=== PATIENT | male | born 1960 | race Caucasian/White ===

== ENCOUNTER 2017-01-23 15:14 | Inpatient (IN) | payer OTHER ==
[~2017-01-23] VITALS: Ht 182.9 cm; Wt 126.4 kg
[2017-01-23 15:22] LABS: BASOPHIL COUNT 0.1 K/uL (0-0.1); EOSINOPHIL (%) 0.4 % (0-5); EOSINOPHIL COUNT 0.1 K/uL (0-0.3); HEMATOCRIT 40.7 % (38.0-50.0); IMMATURE GRANULOCYTE (%) 0.6 % (0.0-0.7); IMMATURE GRANULOCYTE COUNT 0.1 K/uL; INSTRUMENT ABS NEUTROPHIL CT 9.8 K/uL; LYMPHOCYTE COUNT 5.1 K/uL (1.0-2.8); MCH 31.3 PG (29.0-34.0); MCHC 33.9 G/DL (30.0-36.0); MCV 92.3 FL (86-99); MEAN PLAT.VOLUME 8.8 uM^3 (9.0-12.4); MONOCYTE (%) 5.1 % (3-12); MONOCYTE COUNT 0.8 K/uL (0-0.8); NEUTROPHIL (%) 61.5 % (45-76); NEUTROPHIL COUNT 9.8 K/uL (1.8-6.4); PLATELET COUNT 264 K/uL (156-360); RBC DIS.WIDTH-CV 12.6 % (11.8-14.6); RBC DIS.WIDTH-SD 42.5 % (39-53); RED BLOOD COUNT 4.41 M/uL (4.00-5.50); WHITE BLOOD COUNT 15.9 K/uL (4.1-10.2)
[2017-01-23 15:30] LABS: AMYLASE 40 IU/L (1-118); CHLORIDE 109 mEq/L (99-109); POTASSIUM 3.7 mEq/L (3.7-5.4); SODIUM 141 mEq/L (136-147)
[2017-01-23 15:32] LABS: GLUCOSE 159 mg/dL (70-99)
[2017-01-23 15:33] LABS: ANION GAP 13 MEQ/L (2-14)
[2017-01-23 15:35] LABS: SERUM ETHYL ALCOHOL 236 mg/dL
[2017-01-23 15:36] LABS: UREA NITROGEN (BUN) 14 mg/dL (9-23)
[2017-01-23 15:38] LABS: GFR ESTIMATE (CALCULATED) 56 mL/min/
[2017-01-23 15:39] LABS: LIPASE 21 U/L (1.0-51.0)
[2017-01-23 21:43] VITALS: BP 155/78
[2017-01-23 23:25] VITALS: BP 137/66
[2017-01-24] VITALS (7 sets, daily range): BP systolic 123–148; BP diastolic 57–78
[2017-01-24] MEDS ORDERED: ALLOPURINOL100 MG PO (01:47)
[2017-01-24 09:42] LABS: EOSINOPHIL (%) 0 % (0-5); HEMATOCRIT 34.7 % (38.0-50.0); IMMATURE GRANULOCYTE (%) 0.4 % (0.0-0.7); IMMATURE GRANULOCYTE COUNT 0.1 K/uL; INSTRUMENT ABS NEUTROPHIL CT 8.5 K/uL; MCH 31.7 PG (29.0-34.0); MCHC 34.3 G/DL (30.0-36.0); MCV 92.5 FL (86-99); MONOCYTE (%) 9.4 % (3-12); MONOCYTE COUNT 1.1 K/uL (0-0.8); NEUTROPHIL (%) 73.2 % (45-76); NEUTROPHIL COUNT 8.5 K/uL (1.8-6.4); RBC DIS.WIDTH-SD 43.7 % (39-53); RED BLOOD COUNT 3.75 M/uL (4.00-5.50); WHITE BLOOD COUNT 11.6 K/uL (4.1-10.2)
[2017-01-24 09:56] LABS: MEAN PLAT.VOLUME 8.8 uM^3 (9.0-12.4); PLAT.SUFFICIENCY ADEQUATE
[2017-01-24 09:58] LABS: ALKALINE PHOSPHATASE 68 IU/L (3-129); ANION GAP 11 MEQ/L (2-14); CHLORIDE 101 MEQ/L (99-109); MAGNESIUM 1.8 mg/dl (1.3-2.7); POTASSIUM 4.1 MEQ/L (3.7-5.4); SAMPLE HEMOLYSIS CHECK 0; SAMPLE ICTERIC CHECK 0; SAMPLE LIPEMIA CHECK 0; SODIUM 138 MEQ/L (136-147); TOTAL BILIRUBIN 1.1 MG/DL (0.0-1.0); UREA NITROGEN (BUN) 12 mg/dL (9-23)
[2017-01-24 10:03] LABS: PLATELET COUNT 178 K/uL (156-360)
[2017-01-24 10:04] LABS: GFR ESTIMATE (CALCULATED) > 59 mL/min/; GLUCOSE 119 mg/dL (70-99)
[2017-01-24] MEDS ORDERED: PERCOCET 5/31 TABLET PO (11:03)
[2017-01-24] MEDS ORDERED: TRIPLE ANTIBI28.4 G1 TP (11:07)
[2017-01-24] MEDS ORDERED: ADULT FOLDING1 EACH MC (14:38)
[2017-01-25 02:58] VITALS: BP 169/79
[2017-01-25 08:15] VITALS: BP 134/70
[2017-01-25 11:37] VITALS: BP 138/77
[2017-01-25] MEDS ORDERED: INDOMETHACIN25 MG PO (13:22)
[2017-01-25 16:23] VITALS: BP 138/72
[2017-01-25 21:35] VITALS: BP 163/87
[2017-01-25 23:20] VITALS: BP 137/62
[2017-01-26] VITALS (8 sets, daily range): BP systolic 134–183; BP diastolic 61–79
[2017-01-27 04:22] VITALS: BP 156/77
[2017-01-27 08:14] VITALS: BP 137/76
[2017-01-27 11:45] VITALS: BP 122/72
[2017-01-27 15:53] VITALS: BP 164/76
== END 2017-01-27 19:03 | disposition home health service (06) | DRG 538 ==
LOC: EME 15:14 → EDOF 18:22 → 3EAST 18:22 → ENRESERV 18:54 → 3EAST 21:13
PROVIDERS: Emergency Medicine; Surgery
PROC: 0HQ1XZZ Repair Face Skin, External Approach (ICD-10-PCS; principal; 2017-01-23)
PROC: 0SS9XZZ Reposition Right Hip Joint, External Approach (ICD-10-PCS; principal; 2017-01-23)
PROC: 0HQ0XZZ Repair Scalp Skin, External Approach (ICD-10-PCS; principal; 2017-01-23)
DX: S73.014A Posterior dislocation of right hip, initial encounter (principal); S01.01XA Laceration without foreign body of scalp, initial encounter; S01.81XA Laceration without foreign body of other part of head, initial encounter; V47.0XXA Car driver injured in collision with fixed or stationary object in nontraffic accident, initial encounter; I80.8 Phlebitis and thrombophlebitis of other sites; I25.10 Atherosclerotic heart disease of native coronary artery without angina pectoris; M10.9 Gout, unspecified; E66.9 Obesity, unspecified; Z68.37 Body mass index [BMI] 37.0-37.9, adult; Z95.1 Presence of aortocoronary bypass graft
CPT/HCPCS: 70450; 70486; 71260; 72125; 72170; 73030; 73130; 73502; 74177; 76000; 80048; 80053; 81003; 82150; 83690; 83735; 84100; 85025; 86850; 86900; 86901; 97530 GP; 99281; 99285; G0480; J0330; J0690; J1170; J1650; J2250; J3010; J7120